=== PATIENT | male | born 1965 | race African-American/Black ===

== ENCOUNTER 2019-09-02 19:01 | Outpatient (CLI) | payer OTHER | END 2019-09-02 19:53 | disposition home or self-care (01) | LOC: RAD 19:01 | DX: M79.605 Pain in left leg (principal) ==

== ENCOUNTER 2021-07-15 11:52 | Emergency (ER) | payer OTHER ==
[~2021-07-15] VITALS: Ht 175.3 cm; Wt 77.1 kg
[2021-07-15 12:11] VITALS: TEMP 97
[2021-07-15 13:43] LABS: PLATELET COUNT 387 K/uL (142-355)
[2021-07-15 14:01] LABS: POTASSIUM 4.1 mmol/L (3.6-5.2); SODIUM 139 mmol/L (136-145)
[2021-07-15 14:45] VITALS: BP 125/74
== END 2021-07-15 14:50 | disposition home or self-care (01) ==
LOC: ED 11:52
PROVIDERS: Emergency Medicine Emergency Medical Services
DX: R07.89 Other chest pain (principal); Z86.16 Personal history of COVID-19
CPT/HCPCS: 36415; 80053; 84484; 85027; 93005; 99283